=== PATIENT | female | born 1975 | race Caucasian/White ===

== ENCOUNTER → 2018-11-01 | Outpatient (CLI) | payer OTHER ==
[~2018-11-01] MED LIST: ACET500 PO; ATIVAN; CITA20 PO; DULO60 PO; HYDACE5 PO; LEVSOD125 PO; MULVITMINE PO
== END ==
LOC: LAB 16:00 → LAB SHORT 16:00
DX: R30.0 Dysuria (principal)
CPT/HCPCS: 87077; 87086; 87186

== ENCOUNTER → 2019-08-11 | Outpatient (CLI) | payer OTHER ==
[~2019-08-11] MED LIST changes: +CEPH500 PO; +Pyridium200 MG PO
== END ==
LOC: LAB 15:37 → LAB SHORT 15:37
DX: R30.0 Dysuria (principal)
CPT/HCPCS: 87077; 87086; 87186

== ENCOUNTER → 2020-07-06 | Outpatient (CLI) | payer OTHER | LOC: LAB SHORT 17:16 → LAB 17:16 | DX: N39.0 Urinary tract infection, site not specified (principal) | CPT/HCPCS: 87077; 87086; 87186 ==

== ENCOUNTER → 2020-11-08 | Outpatient (CLI) | payer OTHER | LOC: LAB SHORT 16:37 → PLD 16:37 | DX: R30.0 Dysuria (principal) | CPT/HCPCS: 87077; 87086; 87186 ==

== ENCOUNTER → 2020-11-30 | Outpatient (CLI) | payer OTHER ==
[2020-12-01 11:10] LABS: Candida species (DNA Probe) Negative (NEGATIVE); G. vaginalis (DNA Probe) Negative (NEGATIVE); T. vaginalis (DNA Probe) Positive (NEGATIVE)
[2020-12-03 01:09] LABS: CHLAMYDIA TRACHOMATIS, NAA Negative (Negative)
== END ==
LOC: LAB SHORT 17:38 → LAB 17:38
PROVIDERS: Nurse Practitioner Family
DX: N39.0 Urinary tract infection, site not specified (principal)
CPT/HCPCS: 87086; 87480; 87491; 87510; 87591; 87660

== ENCOUNTER → 2021-05-27 | Outpatient (CLI) | payer OTHER ==
[2021-05-28 14:04] LABS: Candida species (DNA Probe) Negative (NEGATIVE); G. vaginalis (DNA Probe) Positive (NEGATIVE); T. vaginalis (DNA Probe) Negative (NEGATIVE)
== END ==
LOC: LAB 15:03 → LAB SHORT 15:03
PROVIDERS: Nurse Practitioner Family
DX: R10.2 Pelvic and perineal pain (principal); N77.1 Vaginitis, vulvitis and vulvovaginitis in diseases classified elsewhere
CPT/HCPCS: 87077; 87086; 87186; 87480; 87510; 87660

== ENCOUNTER → 2021-05-30 | Outpatient (CLI) | payer OTHER ==
[2021-06-02 04:11] LABS: CHLAMYDIA TRACHOMATIS, NAA Negative (Negative)
== END ==
LOC: LAB SHORT 16:45
PROVIDERS: Nurse Practitioner Family
DX: Z11.3 Encounter for screening for infections with a predominantly sexual mode of transmission (principal)
CPT/HCPCS: 87491; 87591

== ENCOUNTER → 2022-02-19 | Outpatient (CLI) | payer OTHER | END | disposition home or self-care (01) | LOC: LAB 14:01 → LAB SHORT 14:01 | DX: N39.0 Urinary tract infection, site not specified (principal) | CPT/HCPCS: 87077; 87086; 87186 ==

== ENCOUNTER → 2022-03-11 | Outpatient (CLI) | payer OTHER | END | disposition home or self-care (01) | LOC: LAB 13:13 → LAB SHORT 13:13 | DX: N39.0 Urinary tract infection, site not specified (principal) | CPT/HCPCS: 87077; 87086; 87186 ==

== ENCOUNTER 2023-04-19 13:25 | Day surgery (SDC) | payer OTHER ==
[~2023-04-19] VITALS: Ht 154.9 cm; Wt 62.1 kg
[2023-04-19] MEDS ORDERED: MONT10T (14:06)
--- NOTE | 2023-04-19 14:47 | NUR ---
04/19/23 1447 Mary Coley 10ML OF ROPIVACAINE 0.5% MIXED AND VERIFIED WITH 0.05ML OF EPI (1MG/ML) TO MAKE ROPIVACAINE 0.5% WITH EPI 1:200,000 FOR INJECTION AT OPSITE BY DR SHAH.
[2023-04-19 15:40] VITALS: BP 120/77
--- NOTE | 2023-04-19 15:53 | NUR ---
04/19/23 1553 ALEX MUÑIZ PT IN RECLINER. CONTINUES TO SAY THAT PAIN IS A 6/10, STATES TOLERABLE. DENIES NAUSEA.
== END 2023-04-19 16:11 | disposition home or self-care (01) ==
LOC: ORSCSDS 13:25
PROVIDERS: Obstetrics & Gynecology
PROC: 0UT04ZZ Resection of Right Ovary, Percutaneous Endoscopic Approach (ICD-10-PCS; principal; 2023-04-19 14:45)
PROC: 0UT64ZZ Resection of Left Fallopian Tube, Percutaneous Endoscopic Approach (ICD-10-PCS; principal; 2023-04-19 14:45)
DX: D27.0 Benign neoplasm of right ovary (principal); R10.2 Pelvic and perineal pain; J45.909 Unspecified asthma, uncomplicated; F17.210 Nicotine dependence, cigarettes, uncomplicated; Z79.899 Other long term (current) drug therapy
CPT/HCPCS: 88305; A9270; J0171; J1100; J2405; J2704; J2795; J3010; J7120

== ENCOUNTER → 2025-01-10 | Outpatient (CLI) | payer OTHER ==
[~2025-01-10] MED LIST changes: +MONT10T
== END ==
LOC: LAB 10:45 → LAB SHORT 10:45
DX: H60.01 Abscess of right external ear (principal); L02.91 Cutaneous abscess, unspecified
CPT/HCPCS: 87070; 87075; 87205